=== PATIENT | female | born 1935 | race Caucasian/White ===

== ENCOUNTER 2018-09-26 06:20 | Inpatient (IN) ==
[~2018-09-26 06:20] MED LIST: TRANEXAMIC ACID 1,000 MG in NORMAL SALINE 100 ML IV PRN; ceFAZolin SODIUM 1 GM VIAL IV PRN
[2018-09-26] MEDS: RINGER'S SOLUTION,LACTATED 1,000 ML IV PRN ×2 (07:27→09:33)
--- NOTE | 2018-09-26 07:28 | ANES ---
Anesthesia Pre Procedure Eval Vitals/Labs: Last Vital Signs Temp 36.6 C 09/26/18 06:43 Pulse 47 L 09/26/18 06:43 Resp 16 09/26/18 06:43 BP 122/56 09/26/18 06:43 Pulse Ox 95 09/26/18 06:43 HOME MEDICATIONS Nadolol [Corgard] 40 mg PO DAILY 09/22/12 [Last Taken 07/12/14] Rosuvastatin Calcium [Crestor] 10 mg PO DAILY 09/22/12 [Last Taken 09/26/18 05:30] Latanoprost [Xalatan] 1 drp RIGHTEYE HS 06/28/14 [Last Taken 07/12/14] amLODIPine BESYLATE [Norvasc] 10 mg PO DAILY 06/24/15 [Last Taken 09/26/18 05:30] Syring-Needl,Disp,Insul,0.3 ml [Insulin Syringe] 1 [facility] ACHS #100 disp.syrin 06/26/15 [Last Taken Unknown] metFORMIN HCL [Glucophage] 1,000 mg PO BIDAC 30 Days tab 06/26/15 [Last Taken Unknown] Pen Needle, Diabetic [Insulin Pen Needle] 1 [facility] HS #100 dis.needle 12/17/17 [Last Taken Unknown] blood sugar diagnostic strips See Dose Instructions .ROUTE .MEDSUPPLY #300 ea 05/11/18 [Last Taken Unknown] acetaminophen 325 mg capsule 650 mg PO BID PRN cap 09/06/18 [Last Taken Unknown] aspirin 81 mg tablet,delayed release 81 mg PO DAILY 09/06/18 [Last Taken 09/21/18] brimonidine 0.15 % eye drops 1 drp OP Q8H 09/06/18 [Last Taken Unknown] insulin glargine (U- 100) 100 unit/mL subcutaneous solution 25 unit SUBCUT DAILY vial 09/06/18 [Last Taken Unknown] insulin lispro (U- 100) 100 unit/mL subcutaneous solution 2 unit SUBCUT TIDWM vial 09/06/18 [Last Taken Unknown] duloxetine 60 mg capsule,delayed release 60 mg PO DAILY 09/08/18 [Last Taken 09/26/18 05:30] Benazepril HCl 10 mg PO DAILY 09/26/18 [Last Taken 09/26/18 05:30] Dapagliflozin Propanediol [Farxiga] 10 mg PO DAILY 09/26/18 [Last Taken Unknown] Allergies/Adverse Reactions: Allergies Allergy/AdvReac Type Severity Reaction Status Date / Time codeine AdvReac Unknown Mental Verified 09/26/18 06:57 changes ASHTYN Inhibitors AdvReac cough Verified 09/26/18 06:57 - Planned Procedure Planned Procedure: R reverse total shoulder Medication List Reviewed:: Yes Allergies Verified: Yes Medical History (Last Reviewed 09/26/18 @ 07:21 by Papa Anderson CRNA) Shoulder pain, right (Acute) Onset Date: Unknown Alzheimers disease Onset Date: Unknown CVA (cerebral vascular accident) Onset Date: Unknown Diabetes 1.5, 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 06/04/02-right. History of excision of lesion Onset Date: ~201408/18/06 right upper cheek facial-benign papillomatous squamous keratosis. 2014 right forearm-squamous cell ca History of laparoscopic appendectomy Onset Date: 04/10/08 Tinguely History of left knee replacement Onset Date: 05/29/01 Dr Hunt History of right knee joint replacement Onset Date: 04/25/00 Dr Hunt History of total abdominal hysterectomy and bilateral salpingo-oophorectomy Onset Date: ~1989 Uterine cancer Hx of colonoscopy Onset Date: 12/02/04 Alejandrinasisabela-moderate diverticulosis, small internal hemorrhoid. Hx of excision of lipomas Onset Date: ~1959 left arm, right leg Hx of eye surgery Onset Date: ~2008 Right retina Hx of repair of rotator cuff Onset Date: 09/25/12 04/22/04 Dr Horvath-right. 09/25/12 Stuart-left Hx of ventral hernia repair Onset Date: 10/17/09 Greggguely-incisional w/large ventralex patch Family History (Last Reviewed 09/26/18 @ 07:21 by Papa Anderson CRNA) Father , age 87-unknown cause Heart disease Diabetes Mother , age 80's-MS Alzheimers disease Brother unknown health history 2 brothers Sister unknown health history - Airway/Neck/Teeth Within Normal Limits:: Yes Teeth Condition: intact Mallampatti Score: 1 Thyromental (T-M) distance: > 6 cm Mandibulo Hyoid distance: > 3 cm - Respiratory Respiratory Physical: lungs clear Smoking Status: Never smoker Discussed smoking cessation including day of surgery: No Sleep Apnea currently treated: No Sleep Apnea by current assessment: No Discussed Risks/Treatment of MERY: No - Cardiovascular Tolerate Activity: Fair Heart Sounds: S1 & S2, Regular - Anesthesia Assessment and Plan ASA Class: PS, III Anesthesia Type Plan: General LMA, Block - Right ultrasound guided interscalene nerve block for postop analgesia
[2018-09-26] MEDS ORDERED: MAG HYDROX/ALUMINUM HYD/SIMETH 30 ML UDC PO PRN (10:11)
[2018-09-26] MEDS ORDERED: ACETAMINOPHEN 500 MG TABLET PO PRN (10:11)
[2018-09-26] MEDS ORDERED: MORPHINE SULFATE 2 MG/ML DISP.SYRIN IV PRN (10:11)
[2018-09-26] MEDS ORDERED: HYDROcodone/ACETAMINOPHEN 1 EACH TABLET PO PRN (10:11)
[2018-09-26] MEDS ORDERED: ONDANSETRON HCL/PF 2 MG/ML VIAL IV PRN (10:11)
[2018-09-26] MEDS ORDERED: MAGNESIUM HYDROXIDE 30 ML UDC PO PRN (10:11)
[2018-09-26] MEDS ORDERED: NORMAL SALINE 1,000 ML IV PRN (10:11)
--- NOTE | 2018-09-26 10:54 | ANES ---
Post Anesthesia Discharge - Transfer of Care Transfer of Care handoff given to nurse: Yes - Discharge from PACU Discharge from PACU when meets criteria: Yes - Discharge to ASU Discharge to ASU-no complications/pt stable: Yes
--- NOTE | 2018-09-26 10:57 | ANES ---
Anesthesia Procedure Note Procedure Note: ANESTHESIA PROCEDURE NOTE Date of Procedure: 09/26/2018. Time of procedure: 0740. Performed by: Papa Anderson CRNA Animal Attendant: None. Preprocedure diagnosis: Osteoarthritis right shoulder. Post procedure diagnosis: Same. Procedure: Right ultrasound guided interscalene nerve block for postoperative analgesia. Indications: The patient is a 82-year-old female, requesting right ultrasound- guided interscalene nerve block for postoperative analgesia related to right reverse total shoulder arthroplasty. Findings: See below. Details of the procedure: The tissue over the intended target site was cleansed with ChloraPrep. 1 ml Lidocaine 1 % was infiltrated to the skin and subcutaneous tissue. Under sterile technique and ultrasound guidance a 22-gauge block needle was inserted to the right brachial plexus nerve bundle between the anterior scalene and the middle scalene muscles. 40 mL's of 0.5% bupivacaine plus epinephrine 1:200,000 was injected after negative aspiration for blood. Needle tip and spread of local anesthetic around the brachial plexus was observed throughout the injection with realtime ultrasound visualization. The needle was removed intact. No complications were noted. The images were retained in the hospital medical database. EBL: Minimal. Fluids: N/A. Specimen: N/A. Post procedure condition: The patient tolerated the procedure well. No complications were noted. Thank you for this consultation. Papa Anderson CRNA
--- NOTE | 2018-09-26 10:59 | OR ---
Operative Report - Dictated Report Narrative: Date: 09/26/2018 Surgeon: Victor Manuel Xavier M.D. Fitter Mechanic: Benito Greenberg PA-C Preoperative diagnosis: Right shoulder rotator cuff arthropathy Postoperative diagnosis: Right shoulder rotator cuff arthropathy Procedure: Right reverse total shoulder arthroplasty Anesthesia: General plus regional Complications: None Estimated blood loss: 150 mL Specimens: Bone for disposal Retained implants: Mg Global Unite cementless size 10 modular stem Mg Delta Xtend size 1 modular eccentric epiphysis Mg Delta Xtend cementless metaglene Mg Delta Xtend standard 42 mm glenosphere Mg Delta Xtend 42 mm/+9 poly cup Drains: None Indications: Shanice is a 82 year-old female who has been followed in my clinic with complaints of shoulder pain consistent with severe rotator cuff arthropathy. Physical exam and diagnostic imaging were consistent with this. Conservative measures have failed including, but not limited to, passage of time, activity modification, medications, physical therapy/home exercise program, or injections. The risks, benefits, and alternatives were discussed in clinic. The risks being , bleeding, infection, blood clots, nerve, blood vessel injury, implant loosening/failure, persistent pain, stiffness, need for pro longed therapy, need for additional procedures, and persistent symptoms. Consent was obtained in the clinic. Procedure: After marking the correct extremity in the preoperative holding area, a timeout was performed in the operating room. IV antibiotics consisting of 2 g of Ancef were administered prior to the procedure. A general followed by regional anesthetic was induced by the nurse flatwork presser. This was in the supine position, then the patient was transitioned to a beachchair position with all bony prominences well-padded, head in neutral, the nonoperative arm well supported, and the legs padded with SCDs in place. The operative shoulder was then prepped and draped in a standard sterile fashion. Preoperatively the shoulder had signficant stiffness in internal external rotation and no instability. A standard deltopectoral incision was marked out over the anterior shoulder approximately 12 cm in length. The skin was incised and dissection with a combination of electrocautery and Metzenbaum scissors was carried down through the subcutaneous tissue. The deltopectoral fascia was identified and the interval was developed using a combination of blunt finger dissection and dissection with Metzenbaum scissors. The cephalic vein was identified and protected. The deltoid was retracted laterally and the pectoralis major muscle and cephalic vein were retracted medially revealing the anterior capsule of the shoulder and the conjoined tendon. The biceps tendon and bicipital groove was palpated and the tissue overlying this was incised revealing the biceps tendon. The lesser tuberosity was palpated and the subscapularis tendon was tagged with a 0 Vicryl stitch. This was then divided sharply with a knife leaving a small cuff of tissue attached to the lesser tuberosity for later repair. Blunt finger dissection was used to dissect the subscapularis away from the anterior glenoid neck. At this point the glenohumeral joint was dislocated delivering the humeral head out of the wound. Combination of blunt finger dissection and electrocautery was used to release the inferior capsule from the humeral neck being careful to protect the axillary nerve. 2 large bony loose bodies were retrieved from the inferior pouch. A small portion of the supraspinatus was still attached to the greater tuberosity and the infraspinatus was intact. A starting point was marked out with electrocautery. The entry reamer was advanced down into the intramedullary canal. Sequential hand reaming was carried out up to 10 mm with good cortical purchase. The humeral head cutting guide was then advanced down into place and set at 10 retroversion at the appropriate height. The cutting block was pinned into place and the rest of the jig was removed. The cutting block was then flipped over and an oscillating saw was used to make the humeral head cut. Excess osteophyte was removed from the humeral head with a rongeur. The protective cap was then placed over the cut end of the proximal humerus and this was then pushed posteriorly and inferiorly out of the way of the glenoid to give us good visualization of the glenoid. Attention was then turned to preparation of the glenoid. Glenoid retractors were placed anterior, posterior, and inferiorly. She had large osteophytes circumferentially around the glenoid, most pronounced anteriorly. This was all removed circumferentially with a combination of a curved osteotome and a rongeur. Circumferential dissection was carried out around the glenoid releasing the capsule from the glenoid neck. The base of the coracoid was visualized and the medial scapular spine could be easily palpated. The pin guide was then placed on the glenoid to allow for inferior, slightly posterior, and slightly inferiorly tilted placement of our guide pin. This was advanced into the bone with good purchase. We confirmed appropriate position of her guidepin at this point. Next, the glenoid was reamed, removing any remaining cartilage and being careful to preserve the subchondral bone. The central peg drill was then drilled over the guidepin. The cementless metaglene and was then impacted into place and placed in the appropriate rotation based on the location of the base of the coracoid and medial scapular spine. The superior and inferior screws were then drilled with good bone purchase. They were then measured and screws were placed with good purchase and good compression of the metaglene against the glenoid. The anterior and posterior screws were then drilled, measured, and placed. The superior and inferior locking screws were then locked into place. At this point we felt a 42 mm glenosphere was the appropriate size and the final glenosphere was screwed into the metaglene. Attention was turned back to the proximal humerus which was again delivered up and out of the wound. The proximal humeral reaming guide was then impacted into place in the appropriate version. The size 1 reaming guide was the appropriate size. The proximal humerus was then reamed out and additional bone was removed with a rongeur. The reaming guide was then removed and the proximal humerus was broached with the size 10 broach in the appropriate version. A size 1 trial was then placed to ensure appropriate sizing. The trial was then removed and the proximal humerus was thoroughly irrigated. The final modular humeral impla nt was then assembled on the back table with eccentricity set at 0. The final humeral stem was then impacted into place. We then began trialing polyethylene and a 42 mm/+9 polyethylene gave the best stability while maintaining full range of motion. The trial was removed and the shoulder was thoroughly irrigated. The final polyethylene was impacted into place and the shoulder was reduced. A final check showed full range of motion with good stability of our implant. A soft tissue repair of the subscapularis was then performed with interrupted #1 Vicryl. The wound was once again copiously irrigated with normal saline and then closed in a layered fashion. The deltopectoral fascia was closed in an interrupted fashion with 0 Vicryl. Subcutaneous tissue was closed with interrupted 3-0 Vicryl in a deep dermal fashion. Skin was then closed with a running subcuticular 4-0 Monocryl and sealed with a Prineo dressing. The wound was then dressed with 4 x 4's, ABD, and medipore tape. All sponge, needle, blade, and instrument counts were correct prior to closing the wounds. The patient was awoken and transferred to the postanesthesia care unit in stable condition.
[2018-09-26] MEDS: ceFAZolin SODIUM 2 GM in DEXTROSE 5 % IN WATER 50 ML IV SCH ×4 (13:20→22:35)
[2018-09-26] MEDS: INSULIN LISPRO 100 UNITS/ML VIAL SC SCH ×2 (13:32→17:23)
--- NOTE | 2018-09-26 14:46 | ANES ---
Post Anesthesia Assessment - Vital Signs Vitals: Last Vital Signs Temp 36 C 09/26/18 12:16 Pulse 45 L 09/26/18 12:16 Resp 19 09/26/18 12:16 BP 138/68 09/26/18 12:16 Pulse Ox 96 09/26/18 12:16 Airway Patency: Normal - Mental Status Level Of Consciousness: Awake - Pain Level Pain Score: 0 - N/V Assessment Nausea/Vomiting Presence: None Dehydration:: No
[2018-09-26] MEDS: HYDROcodone/ACETAMINOPHEN 1 EACH TABLET PO PRN ×2 (16:22→22:32)
[2018-09-26] MEDS ORDERED: ROSUVASTATIN CALCIUM 10 MG TABLET PO SCH (21:00)
[2018-09-26] MEDS ORDERED: SENNOSIDES/DOCUSATE SODIUM 1 TAB TABLET PO SCH (21:00)
[2018-09-27] MEDS: ceFAZolin SODIUM 2 GM in DEXTROSE 5 % IN WATER 50 ML IV SCH ×2 (05:59)
[2018-09-27] MEDS: HYDROcodone/ACETAMINOPHEN 1 EACH TABLET PO PRN ×2 (07:10→13:53)
[2018-09-27] MEDS: INSULIN LISPRO 100 UNITS/ML VIAL SC SCH ×2 (08:08→12:46)
[2018-09-27] MEDS ORDERED: ENALAPRIL MALEATE 5 MG TABLET PO SCH (09:00)
[2018-09-27] MEDS ORDERED: ASPIRIN 81 MG TABLET.DR PO SCH (09:00)
[2018-09-27] MEDS ORDERED: amLODIPine BESYLATE 10 MG TABLET PO SCH (09:00)
[2018-09-27] MEDS ORDERED: NADOLOL 40 MG TABLET PO SCH (09:00)
[2018-09-27] MEDS ORDERED: INSULIN GLARGINE,HUM.REC.ANLOG 100 UNITS/ML VIAL SC SCH (09:00)
--- NOTE | 2018-09-27 13:09 | DS ---
(1) Status post reverse total arthroplasty of right shoulder Problem: Acute Description of Stay: Patient is an 82-year-old female who was admitted postoperatively after her right reverse total shoulder replacement. Patient was admitted for postoperative monitoring, return to p.o. diet, pain control with p.o. medicatio n, PT/OT. Patient has tolerated all these well, exam today reveals sensation intact light touch, return to axillary nerve function, condenser tube tender strength 5/5, distal capillary refill brisk, bandages removed, no significant erythema or drainage about the wound, diffuse tenderness about her right shoulder. Discussed with patient about continued outpatient PT, discharge home. Patient agreed she will be discharged home, follow-up with orthopedic outpatient clinic in 2 weeks. She will begin outpatient physical therapy. She will be given a prescription for all p.o. pain medication. She will continue in shoulder immobilizer until follow-up. She can call the orthopedic outpatient clinic with any acute questions or concerns. -Right upper extremity nonweightbearing, sling immobilizer, other than PT e xercises or activity -P.o. diet as tolerated -PT/OT progress per protocol -P.o. pain medication as needed, note patient is taking hydrocodone, she has an allergy to morphine analogs but has tolerated without complication in hospital will continue this medication, patient can call with any acute changes -Patient can ambulate as tolerated with sling immobilizer -Follow-up in orthopedic outpatient clinic at 2 weeks postop -Maintain postoperative dressing in place, monitor for erythema or drainage Procedures Performed: see notes below List Procedures: Status post right reverse total shoulder arthroplasty Discharge Location: Home Disposition: Home self-care Condition: Good Discharge Activity: Activity as tolerated, Non-Weight bearing - RUE Discharge Diet: General/regular food Referrals: Anusha Ordoñez ARNP [Primary Care Provider] - Problem Oriented Discharge Instructions to Patient/Family: Shoulder Joint Replacement, Care After Print Language (Puerto Rican or Tamazight Available): [place]ican Additional Patient Instructions (free text): PT appointment for Susy Yip is on 09/28/18 at 1:45pm at [facility] Outpatient Rehab Department Follow up Orthopedic appointment, Dr. Xavier's office on Tuesday10/11/18 at 9:45am. Prescriptions (Any new or edited meds): HYDROcodone/ACETAMINOPHEN [Spencer 5-325] 1 - 2 ea PO Q6H PRN #60 tab PRN Reason: Severe Pain (Pain Scale 7-10) Complete Home Medications List: Complete Home Medication List: Nadolol [Corgard] 40 mg PO DAILY 09/22/12 Rosuvastatin Calcium [Crestor] 10 mg PO DAILY 09/22/12 Latanoprost [Xalatan] 1 drp RIGHTEYE HS 06/28/14 amLODIPine BESYLATE [Norvasc] 10 mg PO DAILY 06/24/15 Syring-Needl,Disp,Insul,0.3 ml [Insulin Syringe] 1 [facility] ACHS #100 disp.syrin 06/26/15 metFORMIN HCL [Glucophage] 1,000 mg PO BIDAC 30 Days tab 06/26/15 Pen Needle, Diabetic [Insulin Pen Needle] 1 [facility] HS #100 dis.needle 12/17/17 blood sugar diagnostic strips See Dose Instructions .ROUTE .MEDSUPPLY #300 ea 05/11/18 acetaminophen 325 mg capsule 650 mg PO BID PRN cap 09/06/18 aspirin 81 mg tablet,delayed release 81 mg PO DAILY 09/06/18 brimonidine 0.15 % eye drops 1 drp OP Q8H 09/06/18 insulin glargine (U- 100) 100 unit/mL subcutaneous solution 25 unit SUBCUT DAILY vial 09/06/18 insulin lispro (U- 100) 100 unit/mL subcutaneous solution 2 unit SUBCUT TIDWM vial 09/06/18 duloxetine 60 mg capsule,delayed release 60 mg PO DAILY 09/08/18 Benazepril HCl 10 mg PO DAILY 09/26/18 Dapagliflozin Propanediol [Farxiga] 10 mg PO DAILY 09/26/18 HYDROcodone/ACETAMINOPHEN [Spencer 5-325] 1 - 2 ea PO Q6H PRN #60 tab 09/27/18 Amb Orders for Discharge: PT Evaluation and Treatment* Location: None Selected
[2018-09-27 14:13] VITALS: BP 120/50
== END 2018-09-27 14:29 | disposition home or self-care (01) | DRG 483 ==
LOC: MS 06:20
PROVIDERS: ADMIT Orthopaedic Surgery; ATTEND Orthopaedic Surgery
DX: I10 Essential (primary) hypertension; M19.011 Primary osteoarthritis, right shoulder; F02.80 Dementia in other diseases classified elsewhere, unspecified severity, without behavioral disturbance, psychotic disturbance, mood disturbance, and anxiety; Z86.73 Personal history of transient ischemic attack (TIA), and cerebral infarction without residual deficits; E11.9 Type 2 diabetes mellitus without complications; G30.9 Alzheimer's disease, unspecified
CPT/HCPCS: 73030; 97110; 97116; 97140; 97161; 97165; 97535

== ENCOUNTER 2018-10-01 00:05 | Observation (INO) ==
[2018-10-01 01:33] LABS: Hematocrit 30.9 % (37.0-47.0); Hemoglobin 9.8 gm/dL (12.5-16.0); Mean Cell Volume 93.9 fl (78-100); Mean Corpuscular Hemoglobin 29.8 pg (27-31); Mean Corpuscular Hgb Conc 31.7 g/dl (32-36); Mean Platelet Volume 9.1 fl (8-12.5); Neutrophil # 4.4 K/mm3 (1.3-6.0); Neutrophil % 59.6 % (42-75.0); Platelet Count 209 K/mm3 (150-450); Red Blood Count 3.29 M/mm3 (4.2-5.4); Red Cell Distribution Width 14.6 % (11.5-14.0); White Blood Count 7.5 K/mm3 (4.0-10.5)
[2018-10-01 01:49] LABS: Troponin I Less than 0.017 ng/mL (0.00-0.10)
[2018-10-01 02:17] LABS: Urine Bilirubin Negative (NEGATIVE); Urine Ketone Negative (NEGATIVE); Urine Protein Negative (NEGATIVE); Urine Specific Gravity 1.015 SP.GR. (1.005-1.010); Urine Urobilinogen Normal (NORMAL); Urine pH 5.5 pH (5.0-7.0)
[2018-10-01 02:25] LABS: Urine Blood 5 /ul (NEGATIVE)
[2018-10-01 02:26] LABS: Urine Appearance Slightly Cloudy (CLEAR); Urine Color Yellow; Urine Nitrite Positive (NEGATIVE)
[2018-10-01 02:27] LABS: Urine Bacteria 4+; Urine RBC 0-5 /hpf (0-5)
[2018-10-01 03:53] LABS: Albumin * 2.8 gm/dl (3.4-5.0); Anion Gap 15.1 mmol/L (6.8-13.8); BUN/Creatinine Ratio 22.2 (9.0-21.6); Bilirubin, Total 0.5 mg/dL (0.0-1.1); Ca. Corrected For Albumin 9.9 mg/dL (8.4-10.2); Calcium * 9.3 mg/dL (7.9-10.9); Carbon Dioxide 27.1 mmol/L (24-32.6); Potassium 4.2 mmol/L (3.4-4.6); Total Protein 6.8 gm/dL (6.2-8.2)
--- NOTE | 2018-10-01 04:07 | ERNOTE ---
Neuro HPI ER Record Date of Service: 10/01/18 Presenting Symptoms: confusion Time Seen by Provider: 10/01/18 00:51 Source: patient, family Exam Limitations: clinical condition Immunizations: IMMUNIZATION HX Immunizations Up to Date No History of Influenza Vaccine No Hx Pneumococcal Vaccination No Allergies/Adverse Reactions: Allergies Allergy/AdvReac Type Severity Reaction Status Date / Time codeine AdvReac Unknown Mental Verified 09/26/18 06:57 changes ASHTYN Inhibitors AdvReac cough Verified 09/26/18 06:57 Home Medications: HOME MEDICATIONS Nadolol [Corgard] 40 mg PO DAILY 09/22/12 [Last Taken 07/12/14] Rosuvastatin Calcium [Crestor] 10 mg PO DAILY 09/22/12 [Last Taken 09/26/18 05:30] Latanoprost [Xalatan] 1 drp RIGHTEYE HS 06/28/14 [Last Taken 07/12/14] amLODIPine BESYLATE [Norvasc] 10 mg PO DAILY 06/24/15 [Last Taken 09/26/18 05:30] Syring-Needl,Disp,Insul,0.3 ml [Insulin Syringe] 1 [facility] ACHS #100 disp.syrin 06/26/15 [Last Taken Unknown] metFORMIN HCL [Glucophage] 1,000 mg PO BIDAC 30 Days tab 06/26/15 [Last Taken Unknown] Pen Needle, Diabetic [Insulin Pen Needle] 1 [facility] HS #100 dis.needle 12/17/17 [Last Taken Unknown] blood sugar diagnostic strips See Dose Instructions .ROUTE .MEDSUPPLY #300 ea 05/11/18 [Last Taken Unknown] acetaminophen 325 mg capsule 650 mg PO BID PRN cap 09/06/18 [Last Taken Unknown] aspirin 81 mg tablet,delayed release 81 mg PO DAILY 09/06/18 [Last Taken 09/21/18] brimonidine 0.15 % eye drops 1 drp OP Q8H 09/06/18 [Last Taken Unknown] insulin glargine (U- 100) 100 unit/mL subcutaneous solution 25 unit SUBCUT DAILY vial 09/06/18 [Last Taken Unknown] insulin lispro (U- 100) 100 unit/mL subcutaneous solution 2 unit SUBCUT TIDWM vial 09/06/18 [Last Taken Unknown] duloxetine 60 mg capsule,delayed release 60 mg PO DAILY 09/08/18 [Last Taken 09/26/18 05:30] Benazepril HCl 10 mg PO DAILY 09/26/18 [Last Taken 09/26/18 05:30] Dapagliflozin Propanediol [Farxiga] 10 mg PO DAILY 09/26/18 [Last Taken Unknown] HYDROcodone/ACETAMINOPHEN [[place] 5-325] 1 - 2 ea PO Q6H PRN #60 tab 09/27/18 [Last Taken Unknown] - History of Present Illness Narrative: relates patient has had increased confusion over last 24 hours, recently had right shoulder replacement and has been taking pain meds as prescribed, known hx of alzheimers dementia Onset: cannot confirm onset Severity: moderate Context: other - no injury - Character of Deficits Baseline Cognition: Present: alert but disoriented to time Baseline Gait: Present: walks w/o assistance Associated Symptoms: Reports: altered mental status, disoriented, confused, trouble concentrating Prior Treament: Reports: recently seen, treated by physician, recently hospitalized Review of Systems - Review of Systems Constitutional: Present: See HPI EYE: Present: no symptoms reported ENT: Present: no symptoms reported Respiratory: Present: no symptoms reported Cardiology: Present: no symptoms reported Gastrointestinal/Abdominal: Present: no symptoms reported Genitourinary: Present: no symptoms reported Musculoskeletal: Present: no symptoms reported Skin: Present: no symptoms reported Neurological: Present: no symptoms reported Endocrine: Present: no symptoms reported Hematologic/Lymphatic: Present: no symptoms reported Psych: Present: See HPI, other - confusion Medical History (Last Reviewed 10/01/18 @ 01:12 by Adrianna Ponce) Shoulder pain, right (Acute) Onset Date: Unknown Alzheimers disease Onset Date: Unknown CVA (cerebral vascular accident) Onset Date: Unknown Diabetes 1.5, 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 06/04/02-right. History of excision of lesion Onset Date: ~201408/18/06 right upper cheek facial-benign papillomatous squamous keratosis. 2014 right forearm-squamous cell ca History of laparoscopic appendectomy Onset Date: 04/10/08 Tinguely History of left knee replacement Onset Date: 05/29/01 Dr Hunt History of right knee joint replacement Onset Date: 04/25/00 Dr Hunt History of total abdominal hysterectomy and bilateral salpingo-oophorectomy Onset Date: ~1989 Uterine cancer Hx of colonoscopy Onset Date: 12/02/04 Alejandrinasley-moderate diverticulosis, small internal hemorrhoid. Hx of excision of lipomas Onset Date: ~1959 left arm, right leg Hx of eye surgery Onset Date: ~2008 Right retina Hx of repair of rotator cuff Onset Date: 09/25/12 04/22/04 Dr Horvath-right. 09/25/12 Stuart-left Hx of ventral hernia repair Onset Date: 10/17/09 Perlaely-incisional w/large ventralex patch Family History: Family History (Last Reviewed 10/01/18 @ 01:12 by Adrianna Ponce) Father , age 87-unknown cause Heart disease Diabetes Mother , age 80's-[place] Alzheimers disease Brother unknown health history 2 brothers Sister unknown health history Social History: Preferred Language Mongolian Do you have any restorationist or No cultural preference? Smoking Status Never smoker Abuse History No History of abuse Psych History No pertinent hx (Last Updated 09/08/18 @ 12:21 by RENETTA Chang) No Social History Section defined Physical Exam - Physical Exam General Appearance: Present: mild distress, anxious Head Exam: Present: normal inspection, no evidence of injury Eye Exam: Normal inspection: bilateral, PERRL: bilateral, EOMI: bilateral Ears, Nose, Throat: Present: normal ENT inspection, normal pharynx Neck: Present: normal inspection, nontender Respiratory: Present: no respiratory distress, normal breath sounds, no accessory muscle use, chest nontender, lungs clear Cardiovascular/Chest: Present: regular rate, rhythm, no murmur, normal peripheral pulses Gastrointestinal/Abdominal: Present: normal bowel sounds, nontender, nondistended, soft, no organomegaly Rectal Exam: Present: nontender, normal rectal tone Back Exam: Present: normal inspection, normal range of motion, no CVA tenderness, no vertebral tenderness Extremity Exam: Present: normal except - - healing incision right shoulder Neurological Exam: Present: alert, no motor/sensory deficits, disoriented to time, disoriented to place, disoriented to situation Skin Exam: Present: normal color, warm/dry [place] Coma Scale - Assess Eye Opening: To Voice Motor: Obeys Commands Verbal: Confused - Total Coma Scale Total: 13 Progress - Date and Time Seen: Date and Time: 10/01/18 04:04 condition unchanged, case discussed with dr ureña, to admmit to observation - Results and Orders Patient's Lab Results:: I have reviewed the patient's lab results. - Vital Signs Patient's Vital Signs:: I have reviewed the patient's vital signs. Vital Signs: Vital Signs 10/01/18 00:14 10/01/18 00:47 10/01/18 00:52 Temperature 36.9 C 36.5 C Pulse Rate 65 63 61 Respiratory Rate 12 18 18 Blood Pressure 141/64 149/67 149/67 O2 Sat by Pulse Oximetry 95 95 94 10/01/18 01:17 10/01/18 02:09 10/01/18 02:53 Temperature Pulse Rate 60 62 65 Respiratory Rate 18 18 16 Blood Pressure 138/61 152/72 H 150/69 H O2 Sat by Pulse Oximetry 23 L 93 93 - Progress/Reassessment Chief Complaint: Altered Mental Status Progress:: Unchanged - Transfer of Care Expected Disposition: Admit Plan - Plan Plan: to admit to observation Departure Clinical Impression: Altered mental status, unspecified, UTI (urinary tract infection), uncomplicated - Departure Disposition: Still a patient Condition: Stable Referrals: Anusha Ordoñez ARNP [Primary Care Provider] -
[2018-10-01] MEDS ORDERED: CIPROFLOXACIN IN 5 % DEXTROSE 400 MG/200 ML BAG IV SCH (04:30)
[2018-10-01] MEDS: NORMAL SALINE 1,000 ML IV PRN ×3 (04:52→23:11)
[2018-10-01] MEDS ORDERED: ACETAMINOPHEN 325 MG TABLET PO PRN (08:05)
[2018-10-01] MEDS: ASPIRIN 81 MG TABLET.DR PO SCH (09:06)
[2018-10-01] MEDS: ENALAPRIL MALEATE 5 MG TABLET PO SCH (09:06)
[2018-10-01] MEDS: amLODIPine BESYLATE 10 MG TABLET PO SCH (09:06)
[2018-10-01] MEDS: INSULIN GLARGINE,HUM.REC.ANLOG 100 UNITS/ML VIAL SC SCH (11:36)
[2018-10-01] MEDS: INSULIN LISPRO 100 UNITS/ML VIAL SC SCH ×3 (11:36→16:54)
--- NOTE | 2018-10-01 11:48 | HP ---
Chief Complaint - Chief Complaint Date of Service: 10/01/18 Time of Service: 11:26 Chief Complaint: "wasn't feeling good" History of Present Illness: Patient seen and examined, no family present. Per ED physician and chart review, she has a PMHx of Alzheimer's dementia, HTN, DM, HLD. She had shoulder repair surgery on 09/26, and has had some confusion since then. She reports having some diarrhea, increased urinary frequency. She has some difficulty providing history - she stated she had some abdominal pain this morning, but she has IBS and "that got rid of it." She denies dysuria, CP, SOB, skin concerns. She has been getting 5-325 norco since her surgery. She currently denies shoulder pain. ED workup showed potential UTI, with 4+ bacteria on UA with positive nitrates, and she was started on cipro. However, the specimen was contaminated with epithelial cells, and culture is pending. She reports living at home with her . Medical History (Last Reviewed 10/01/18 @ 05:19 by Josie Bailey RN) Shoulder pain, right (Acute) Onset Date: Unknown Alzheimers disease Onset Date: Unknown CVA (cerebral vascular accident) Onset Date: Unknown Diabetes 1.5, 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 06/04/02-right. History of excision of lesion Onset Date: ~201408/18/06 right upper cheek facial-benign papillomatous squamous keratosis. 2014 right forearm-squamous cell ca History of laparoscopic appendectomy Onset Date: 04/10/08 Gregggualejandra History of left knee replacement Onset Date: 05/29/01 Dr Hunt History of right knee joint replacement Onset Date: 04/25/00 Dr Hunt History of total abdominal hysterectomy and bilateral salpingo-oophorectomy Onset Date: ~1989 Uterine cancer Hx of colonoscopy Onset Date: 12/02/04 Peasley-moderate diverticulosis, small internal hemorrhoid. Hx of excision of lipomas Onset Date: ~1959 left arm, right leg Hx of eye surgery Onset Date: ~2008 Right retina Hx of repair of rotator cuff Onset Date: 09/25/12 04/22/04 Dr Horvath-right. 09/25/12 Stuart-left Hx of ventral hernia repair Onset Date: 10/17/09 Tinguely-incisional w/large ventralex patch Family History: Family History (Last Reviewed 10/01/18 @ 05:19 by Josie Bailey RN) Father , age 87-unknown cause Heart disease Diabetes Mother , age 80's-[place] Alzheimers disease Brother unknown health history 2 brothers Sister unknown health history Social History: Patient Lives/Resources With Spouse Utilized Occupation charter driver Preferred Language Bulgarian Do you have any confucianism or Yes: Buddhist cultural preference? Smoking Status Never smoker Have you smoked in the past 12 No months Do you dip or chew tobacco No Abuse History No History of abuse Psych History No pertinent hx (Last Updated 09/08/18 @ 12:21 by RENETTA Chang) No Social History Section defined Review Of Systems (GEN) - Review of Systems Generalized/Overall Review: Absent: Fever Respiratory: Absent: Cough, Shortness of Breath Cardiac: Absent: Chest Pain, Edema Abdominal: Absent: Nausea Genitourinary: Present: Frequency. Absent: Dysuria Musculoskeletal: Present: Other - S/P right shoulder replacement, POD #5 Immunizations: IMMUNIZATION HX Immunizations Up to Date No History of Influenza Vaccine No Hx Pneumococcal Vaccination No Allergies/Adverse Reactions: Allergies Allergy/AdvReac Type Severity Reaction Status Date / Time codeine AdvReac Unknown Mental Verified 09/26/18 06:57 changes ASHTYN Inhibitors AdvReac cough Verified 09/26/18 06:57 Home Medications: HOME MEDICATIONS Nadolol [Corgard] 40 mg PO DAILY 09/22/12 [Last Taken 07/12/14] Rosuvastatin Calcium [Crestor] 10 mg PO DAILY 09/22/12 [Last Taken 09/26/18 05:30] Latanoprost [Xalatan] 1 dralireza QUIJANO 06/28/14 [Last Taken 07/12/14] amLODIPine BESYLATE [Norvasc] 10 mg PO DAILY 06/24/15 [Last Taken 09/26/18 05:30] Syring-Needl,Disp,Insul,0.3 ml [Insulin Syringe] [facility]/26[facility]15 [Last Taken Unknown] metFORMIN HCL [Glucophage] 1,000 mg PO BIDAC 30 Days tab 06/26/15 [Last Taken Unknown] Pen Needle, Diabetic [Insulin Pen Needle] 1 [facility] HS #100 dis.needle 12/17/17 [Last Taken Unknown] acetaminophen 325 mg capsule 650 mg PO BID PRN cap 09/06/18 [Last Taken Unknown] aspirin 81 mg tablet,delayed release 81 mg PO DAILY 09/06/18 [Last Taken 09/21/18] brimonidine 0.15 % eye drops 1 drp OP Q8H 09/06/18 [Last Taken Unknown] insulin glargine (U- 100) 100 unit/mL subcutaneous solution 25 unit SUBCUT DAILY vial 09/06/18 [Last Taken Unknown] insulin lispro (U- 100) 100 unit/mL subcutaneous solution 2 unit SUBCUT TIDWM vial 09/06/18 [Last Taken Unknown] duloxetine 60 mg capsule,delayed release 60 mg PO DAILY 09/08/18 [Last Taken 09/26/18 05:30] Benazepril HCl 10 mg PO DAILY 09/26/18 [Last Taken 09/26/18 05:30] Dapagliflozin Propanediol [Farxiga] 10 mg PO DAILY 09/26/18 [Last Taken Unknown] HYDROcodone/ACETAMINOPHEN [[place] 5-325] 1 - 2 ea PO Q6H PRN #60 tab 09/27/18 [Last Taken Unknown] Blood Sugar Diagnostic [Blood Glucose Test] 1 [facility] 10/01/18 [Last Taken Unknown] Exam - Exam Vital Signs: Vital Signs - Last Taken Temp 37.1 C 10/01/18 11:23 Pulse 63 10/01/18 09:06 Resp 20 10/01/18 09:00 BP 149/67 10/01/18 09:06 Pulse Ox 91 L 10/01/18 09:00 Constitutional: Present: Alert - oriented to self, September, No distress, Elderly Respiratory: Present: normal breath sounds, no respiratory distress, No wheezing Cardiovascular/Chest: Present: regular rate, rhythm Abdomen: Present: soft, nontender Extremity: Present: other - Right shoulder in sling. Absent: lower extremity edema Eye contact: Present: cooperative Diagnostic Studies: Abnormal Lab Results 10/01/18 10/01/18 10/01/18 Range/Units 01:30 01:30 01:30 RBC 3.29 L (4.2-5.4) M/mm3 Hgb 9.8 L (12.5-16.0) gm/dL Hct 30.9 L (37.0-47.0) % MCHC 31.7 L (32-36) g/dl RDW 14.6 H (11.5-14.0) % Monocytes % 12.2 H (0.0-9) % Eosinophils % 4.2 H (0.0-3.0) % Anion Gap (6.8-13.8) mmol/L BUN/Creatinine Ratio (9.0-21.6) Random Glucose (70-110) mg/dL ALT (19-67) U/L C-Reactive Prot, Quant 5.0 H (0.0-0.9) mg/dL Albumin (3.4-5.0) gm/dl Procalcitonin Less than 0.05 L (0.05-0.50) ng/mL Urine Glucose (UA) (NEGATIVE) mg/dL Urine Blood (NEGATIVE) /ul Urine Nitrate (NEGATIVE) Urine WBC (0-5) /hpf Ur Epithelial Cells (0-5) /hpf Urine Bacteria (NONE) 10/01/18 10/01/18 Range/Units 02:05 03:39 RBC (4.2-5.4) M/mm3 Hgb (12.5-16.0) gm/dL Hct (37.0-47.0) % MCHC (32-36) g/dl RDW (11.5-14.0) % Monocytes % (0.0-9) % Eosinophils % (0.0-3.0) % Anion Gap 15.1 H (6.8-13.8) mmol/L BUN/Creatinine Ratio 22.2 H (9.0-21.6) Random Glucose 189 H (70-110) mg/dL ALT 11 L (19-67) U/L C-Reactive Prot, Quant (0.0-0.9) mg/dL Albumin 2.8 L (3.4-5.0) gm/dl Procalcitonin (0.05-0.50) ng/mL Urine Glucose (UA) >=1000 H (NEGATIVE) mg/dL Urine Blood 5 H (NEGATIVE) /ul Urine Nitrate Positive H (NEGATIVE) Urine WBC 5-10 H (0-5) /hpf Ur Epithelial Cells 10-25 H (0-5) /hpf Urine Bacteria 4+ H (NONE) Laboratory Results WBC 7.5 K/mm3 (4.0-10.5) 10/01/18 01:30 RBC 3.29 M/mm3 (4.2-5.4) L 10/01/18 01:30 Hgb 9.8 gm/dL (12.5-16.0) L 10/01/18 01:30 Hct 30.9 % (37.0-47.0) L 10/01/18 01:30 MCV 93.9 fl (78-100) 10/01/18 01:30 MCH 29.8 pg (27-31) 10/01/18 01:30 MCHC 31.7 g/dl (32-36) L 10/01/18 01:30 RDW 14.6 % (11.5-14.0) H 10/01/18 01:30 Plt Count 209 K/mm3 (150-450) 10/01/18 01:30 MPV 9.1 fl (8-12.5) 10/01/18 01:30 Immature Gran % (Auto) 0.30 % (0.001-0.429) 10/01/18 01:30 Immature Gran # (Auto) 0.02 K/mm3 (0.000-0.0310) 10/01/18 01:30 Neutrophils % 59.6 % (42-75.0) 10/01/18 01:30 Lymphocytes % 23.2 % (20-51) 10/01/18 01:30 Monocytes % 12.2 % (0.0-9) H 10/01/18 01:30 Eosinophils % 4.2 % (0.0-3.0) H 10/01/18 01:30 Basophils % 0.5 % (0.0-1.0) 10/01/18 01:30 Nucleated RBC % 0.0 k/mm3 (0-1) 10/01/18 01:30 Neutrophils # 4.4 K/mm3 (1.3-6.0) 10/01/18 01:30 Lymphocytes # 1.73 k/mm3 (1.5-3.5) 10/01/18 01:30 Monocytes # 0.9 k/mm3 (0.0-1.0) 10/01/18 01:30 Eosinophils # 0.3 k/mm3 (0.0-0.7) 10/01/18 01:30 Absolute Basophils 0.0 k/mm3 (0.0-0.1) 10/01/18 01:30 Sodium 140 mmol/L (132-142) 10/01/18 03:39 Plasma Sodium 141 mmol/L (130-142) 10/01/18 03:39 Potassium 4.2 mmol/L (3.4-4.6) 10/01/18 03:39 Chloride 102 mmol/L (97-106) 10/01/18 03:39 Carbon Dioxide 27.1 mmol/L (24-32.6) 10/01/18 03:39 Anion Gap 15.1 mmol/L (6.8-13.8) H 10/01/18 03:39 BUN 20 mg/dL (3-23) 10/01/18 03:39 Creatinine 0.90 mg/dL (0.4-1.4) 10/01/18 03:39 Est GFR (Non-Af Amer) 64 mL/min (60-130) 10/01/18 03:39 BUN/Creatinine Ratio 22.2 (9.0-21.6) H 10/01/18 03:39 Random Glucose 189 mg/dL (70-110) H 10/01/18 03:39 Lactic Acid, Venous 1.1 mmol/L (0.4-2.0) 10/01/18 01:30 Calcium 9.3 mg/dL (7.9-10.9) 10/01/18 03:39 Calcium Adj for Albumin 9.9 mg/dL (8.4-10.2) 10/01/18 03:39 Total Bilirubin 0.5 mg/dL (0.0-1.1) 10/01/18 03:39 AST 14 U/L (0-48) 10/01/18 03:39 ALT 11 U/L (19-67) L 10/01/18 03:39 Alkaline Phosphatase 81 U/L (50-170) 10/01/18 03:39 Troponin I Less than 0.017 ng/mL (0.00-0.10) 10/01/18 01:30 C-Reactive Prot, Quant 5.0 mg/dL (0.0-0.9) H 10/01/18 01:30 Total Protein 6.8 gm/dL (6.2-8.2) 10/01/18 03:39 Albumin 2.8 gm/dl (3.4-5.0) L 10/01/18 03:39 Procalcitonin Less than 0.05 ng/mL (0.05-0.50) L 10/01/18 01:30 Urine Color Yellow 10/01/18 02:05 Urine Appearance Slightly cloudy (CLEAR) 10/01/18 02:05 Urine pH 5.5 pH (5.0-7.0) 10/01/18 02:05 Ur Specific [place] 1.015 SP.GR. (1.005-1.010) 10/01/18 02:05 Urine Protein Negative mg/dL (NEGATIVE) 10/01/18 02:05 Urine Glucose (UA) >=1000 mg/dL (NEGATIVE) H 10/01/18 02:05 Urine Ketones Negative mg/dL (NEGATIVE) 10/01/18 02:05 Urine Blood 5 /ul (NEGATIVE) H 10/01/18 02:05 Urine Nitrate Positive (NEGATIVE) H 10/01/18 02:05 Urine Bilirubin Negative mg/dl (NEGATIVE) 10/01/18 02:05 Urine Urobilinogen Normal EU/dl (NORMAL) 10/01/18 02:05 Ur Leukocyte Esterase Negative /ul (NEGATIVE) 10/01/18 02:05 Urine RBC 0-5 /hpf (0-5) 10/01/18 02:05 Urine WBC 5-10 /hpf (0-5) H 10/01/18 02:05 Ur Epithelial Cells 10-25 /hpf (0-5) H 10/01/18 02:05 Urine Bacteria 4+ (NONE) H 10/01/18 02:05 Urine Culture Comments Culture to follow 10/01/18 02:05 Assessment/Plan - Assessment/Plan (1) Altered mental status Assessment: She has a diagnosis of Alzheimer's in her chart. With her recent surgery, she may be experiencing some delirium. She also was started on pain meds, which is likely contributing. Will hold pain meds and attempt to control her pain with tylenol and ibuprofen prn. Her UA was positive for nitrates, so she may have UTI, but the specimen was contaminated. Will continue cipro for now pending culture results, but will change the dose from 400 mg to 250 mg. No family members currently present to verify her baseline mental status. PT eval pending. Problem: Chronic Qualifiers: Altered mental status type: delirium Qualified Code(s): R41.0 - Disorientation, unspecified (2) Abnormal finding on urinalysis Assessment: UA positive for nitrates, but it was contaminated with epithelial cells. Culture pending. She did have a fever this morning of 38.3. Adjusted cipro dose to 200 mg for uncomplicated cystitis, and will DC if culture is negative. She denies dysuria, but reported increased frequency. Problem: Acute (3) Diabetes mellitus, type II, insulin dependent Assessment: Continue home regimen. Hold mealtime insulin if glucose is less than 150. Problem: Acute (4) HTN (hypertension) Assessment: Currently controlled. Will continue home enalapril, amlodipine, nadolol. Problem: Chronic
[2018-10-01] MEDS: CIPROFLOXACIN IN 5 % DEXTROSE 200 MG/100 ML BAG IV SCH (19:41)
[2018-10-02] MEDS: CIPROFLOXACIN IN 5 % DEXTROSE 200 MG/100 ML BAG IV SCH (07:16)
[2018-10-02] MEDS: NORMAL SALINE 1,000 ML IV PRN (07:16)
[2018-10-02] MEDS: ASPIRIN 81 MG TABLET.DR PO SCH (08:04)
[2018-10-02] MEDS: amLODIPine BESYLATE 10 MG TABLET PO SCH (08:05)
[2018-10-02] MEDS: INSULIN LISPRO 100 UNITS/ML VIAL SC SCH ×2 (08:06→12:14)
[2018-10-02] MEDS: ENALAPRIL MALEATE 5 MG TABLET PO SCH (08:06)
[2018-10-02] MEDS: INSULIN GLARGINE,HUM.REC.ANLOG 100 UNITS/ML VIAL SC SCH (08:10)
--- NOTE | 2018-10-02 12:33 | DS ---
(1) UTI (urinary tract infection), uncomplicated Problem: Acute (2) Altered mental status Problem: Chronic Qualifiers: Altered mental status type: delirium Qualified Code(s): R41.0 - Disorientation, unspecified (3) Diabetes mellitus, type II, insulin dependent Problem: Acute (4) HTN (hypertension) Problem: Chronic Description of Stay: Patient seen and examined on admission, no family present. Per ED physician and chart review, she has a PMHx of Alzheimer's dementia, HTN, DM, HLD. She had shoulder repair surgery on 09/26, and has had some confusion since then. She reports having some diarrhea, increased urinary frequency. She has some difficulty providing history - she stated she had some abdominal pain on the morning of admission, but she has IBS and "that got rid of it." She denies dysuria, CP, SOB, skin concerns. She has been getting 5-325 norco since her surgery. She currently denies shoulder pain. Her had reported some increased confusion since coming home from shoulder surgery. She had been given narcotics for pain control. These were held during her admission. UA was abnormal, and she was started on IV cipro. Urine culture grew greater than 100,000 CFU gram negative bacilli, so she is positive for UTI. Will DC with 250 mg cipro bid for a total of 5 days of treatment. DC plans discussed with her , who would like home health. Shanice Yip is homebound due to Alzheimer's dementia. intermediate is needed for medication management and monitoring her incision. She also had r ecent shoulder surgery, and physical therapy as needed for strengthening and pain management. Occupational therapy will be helpful for resuming ADLs. The need for home health care skilled services is directly related to the time spent [id number] with Shanice Yip. Procedures Performed: none Results and Findings: Pending Mircobiology Results 10/01/18 02:21 Urine,Voided Urine Culture - Preliminary Gram Negative Bacilli Lab Pending Results 10/01/18 01:30: WBC 7.5, RBC 3.29 L, Hgb 9.8 L, Hct 30.9 L, MCV 93.9, MCH 29.8, MCHC 31.7 L, RDW 14.6 H, Plt Count 209, MPV 9.1, Immature Gran % (Auto) 0.30, Immature Gran # (Auto) 0.02, Neutrophils % 59.6, Lymphocytes % 23.2, Monocytes % 12.2 H, Eosinophils % 4.2 H, Basophils % 0.5, Nucleated RBC % 0.0, Neutrophils # 4.4, Lymphocytes # 1.73, Monocytes # 0.9, Eosinophils # 0.3, Absolute Basophils 0.0 10/01/18 01:30: Procalcitonin Less than 0.05 L 10/01/18 01:30: Troponin I Less than 0.017, C-Reactive Prot, Quant 5.0 H 10/01/18 01:30: Lactic Acid, Venous 1.1 10/01/18 02:05: Urine Color Yellow, Urine Appearance Slightly cloudy, Urine pH 5.5, Ur Specific [place] 1.015, Urine Protein Negative, Urine Glucose (UA) >=1000 H, Urine Ketones Negative, Urine Blood 5 H, Urine Nitrate Positive H, Urine Bilirubin Negative, Urine Urobilinogen Normal, Ur Leukocyte Esterase Negative, Urine RBC 0-5, Urine WBC 5-10 H, Ur Epithelial Cells 10-25 H, Urine Bacteria 4+ H, Urine Culture Comments Culture to follow 10/01/18 03:39: Sodium 140, Plasma Sodium 141, Potassium 4.2, Chloride 102, Carbon Dioxide 27.1, Anion Gap 15.1 H, BUN 20, Creatinine 0.90, Est GFR (Non-Af Amer) 64, BUN/Creatinine Ratio 22.2 H, Random Glucose 189 H, Calcium 9.3, Calcium Adj for Albumin 9.9, Total Bilirubin 0.5, AST 14, ALT 11 L, Alkaline Phosphatase 81, Total Protein 6.8, Albumin 2.8 L Discharge Location: Home Disposition: [facility] Home [facility] Condition: Fair Discharge Activity: Activity as tolerated Discharge Diet: General/regular food Referrals: Anusha Ordoñez ARNP [Primary Care Provider] - Additional Patient Instructions (free text): -Please make TCM appointment unless half-way discharge. Thank you! Vianey @ [phone]. [facility] at discharge. Prescriptions (Any new or edited meds): Ciprofloxacin HCl [Cipro] 250 mg PO BID #7 tab Complete Home Medications List: Complete Home Medication List: Nadolol [Corgard] 40 mg PO DAILY 09/22/12 Rosuvastatin Calcium [Crestor] 10 mg PO DAILY 09/22/12 Latanoprost [Xalatan] 1 drp [facility] HS 06/28/14 amLODIPine BESYLATE [Norvasc] 10 mg PO DAILY 06/24/15 Syring-Needl,Disp,Insul,0.3 ml [facility]/26/15 metFORMIN HCL [Glucophage] 1,000 mg PO BIDAC 30 Days tab 06/26/15 Pen Needle, Diabetic [Insulin Pen Needle] 1 [facility] HS #100 dis.needle 12/17/17 acetaminophen 325 mg capsule 650 mg PO BID PRN cap 09/06/18 aspirin 81 mg tablet,delayed release 81 mg PO DAILY 09/06/18 brimonidine 0.15 % eye drops 1 drp OP Q8H 09/06/18 insulin glargine (U- 100) 100 unit/mL subcutaneous solution 25 unit SUBCUT DAILY vial 09/06/18 insulin lispro (U- 100) 100 unit/mL subcutaneous solution 2 unit SUBCUT TIDWM vial 09/06/18 duloxetine 60 mg capsule,delayed release 60 mg PO DAILY 09/08/18 Benazepril HCl 10 mg PO DAILY 09/26/18 Dapagliflozin Propanediol [Farxiga] 10 mg PO DAILY 09/26/18 Blood Sugar Diagnostic [facility] Glucose Test Strip[facility] 10[facility]18 Ciprofloxacin HCl [Cipro] 250 mg PO BID #7 tab 10/02/18
[2018-10-02 15:02] VITALS: BP 147/71
== END 2018-10-02 15:30 | disposition home health service (06) ==
LOC: ER 00:05 → MS 00:05
PROVIDERS: ADMIT Family Medicine; ATTEND Family Medicine
DX: Z96.611 Presence of right artificial shoulder joint; R41.82 Altered mental status, unspecified; N39.0 Urinary tract infection, site not specified; Z79.4 Long term (current) use of insulin; I10 Essential (primary) hypertension; E11.9 Type 2 diabetes mellitus without complications
CPT/HCPCS: 36415; 70450; 71020; 71046; 80053; 81001; 83605; 84145; 84484; 85025; 86140; 87077; 87086; 87186; 93005; 96361; 96365; 96366; 96372; 97140; 97161; 99285; G0378